=== PATIENT | female | born 1935 | race Caucasian/White ===

== ENCOUNTER 2023-06-30 13:02 | Inpatient (IN) | payer OTHER ==
[~2023-06-30] VITALS: Ht 160 cm; Wt 50.3 kg
[2023-06-30 13:15] VITALS: BP 120/84; PULSE 89; RESP 20; TEMP 97; O2SAT 98
[2023-06-30] MEDS: NACL 0.9% 1,000 ML IV ONE (14:30)
[2023-06-30] MEDS ORDERED: LEFL20TA22 PO (15:28)
[2023-06-30] MEDS ORDERED: CARV6.25 PO (15:28)
[2023-06-30] MEDS ORDERED: APIX2.5 PO (15:28)
[2023-06-30] MEDS ORDERED: SYN.075 PO (15:28)
[2023-06-30] MEDS ORDERED: SPIR50TA PO (15:28)
[2023-06-30] MEDS ORDERED: AMIO100T3 PO (15:28)
[2023-06-30] MEDS ORDERED: OMEP20EC11 PO (15:28)
[2023-06-30] MEDS ORDERED: LOSA-272 PO (15:28)
[2023-06-30] MEDS ORDERED: FURO-572 PO (15:28)
[2023-06-30] MEDS ORDERED: GABA300C PO (15:28)
[2023-06-30] MEDS ORDERED: ATOR40TA PO (15:28)
[2023-06-30 15:48] LABS: APPEARANCE,URINE CLEAR (CLEAR); BILIRUBIN,URINE NEGATIVE (NEGATIVE); BLOOD, URINE NEGATIVE (NEGATIVE); COLOR,URINE YELLOW (YELLOW); LEUKOCYTE ESTERASE ,URINE NEGATIVE (NEGATIVE); NITRITE, URINE NEGATIVE (NEGATIVE); PROTEIN,URINE NEGATIVE (NEGATIVE); UGLUCOSE NEGATIVE (NEGATIVE); UROBILINOGEN,URINE 0.2 EU/dL (0.2 - 1)
[2023-06-30 15:58] LABS: BASOPHILS % (AUTO) 0.3 % (0.0-2.0); EOSINOPHILS % (AUTO) 0.3 % (0.0-4.0); HEMATOCRIT 30.1 % (36-48); LYMPHOCYTES # (AUTO) 0.9 K/uL (2.5-16.5); LYMPHOCYTES % (AUTO) 7.6 % (20.5-51.1); MEAN CORPUSCULAR HEMOGLOBIN 31 pg (27-31); MEAN CORPUSCULAR HGB CONC 33 g/dL (33-37); MEAN CORPUSCULAR VOLUME 94.7 fL (80-94); MONOCYTES # (AUTO) 0.6 K/uL (0.8-1.0); MONOCYTES % (AUTO) 5.2 % (1.7-9.3); NEUTROPHILS # (AUTO) 9.8 K/uL (1.8-7.7); NEUTROPHILS % (AUTO) 86.6 % (42.2-75.2); PLATELET COUNT (AUTO) 220 K/uL (140-450); RED BLOOD CELL COUNT(AUTO) 3.18 MIL/uL (4.20-5.40); RED CELL DISTRIBUTION WIDTH 17.9 % (11.6-13.7); WHITE BLOOD COUNT (AUTO) 11.3 K/uL (4.8-10.8)
[2023-06-30 16:17] LABS: ALANINE AMINOTRANSFERASE 13 U/L (12-78); ALBUMIN 2.5 g/dL (3.4-5.0); ALKALINE PHOSPHATASE 98 U/L (50-136); ASPARTATE AMINOTRANSFERASE 26 U/L (15-37); LIPASE 44 U/L (16-77); TOTAL BILIRUBIN 0.3 mg/dL (0.0-1.0); TOTAL PROTEIN, SERUM 6.5 g/dL (6.4-8.2)
[2023-06-30 17:08] LABS: INR 1.25 (0.8-1.2); PARTIAL THROMBOPLASTIN TIME 24.1 secs (22-35.6)
[2023-06-30] MEDS ORDERED: CRUSHER, PILL MC ONE (17:30)
[2023-06-30] MEDS: KETOROLAC 30 MG/ML VIAL IVP ONE (17:37)
[2023-06-30] MEDS: ACETAMINOPHEN EXTRA STRENGTH 500 MG TAB PO ONE (17:40)
[2023-06-30] MEDS ORDERED: MAG SULF 2000 MG/WATER PREMIX 50 ML IV PRN (18:25)
[2023-06-30] MEDS ORDERED: POTASSIUM CHLORIDE 10 MEQ TABER PO PRN (18:25)
[2023-06-30] MEDS: NACL 0.9% 1,000 ML IV SCH (18:35)
[2023-06-30] MEDS ORDERED: HYDROcodone/APAP 7.5/325 MG 1 TAB PO PRN (18:35)
[2023-06-30] MEDS ORDERED: ONDANSETRON 4 MG/2 ML VIAL IVP PRN (18:35)
[2023-06-30 20:28] LABS: CHOL/HDL RATIO 2.3 (1-4.5); THYROID STIMULATING HORMONE 10.42 uIU/mL (0.34-3.74)
[2023-06-30 20:48] LABS: INR 0.93 (0.8-1.2); LACTIC ACID 0.8 mmol/L (0.4-2.0); PARTIAL THROMBOPLASTIN TIME 21.1 secs (22-35.6); PROTHROMBIN TIME 9.8 secs (10.8-13.4)
[2023-06-30 21:00] VITALS: PULSE 79; RESP 18; O2SAT 99
[2023-06-30] MEDS: carvediloL 6.25 MG TAB PO SCH (21:30)
[2023-06-30] MEDS: DOCUSATE SODIUM 100 MG GELCAP PO SCH (21:55)
[2023-06-30] MEDS: LOSARTAN 25 MG TAB PO SCH (21:57)
[2023-06-30] MEDS: APIXABAN 2.5 MG TAB PO SCH (22:00)
[2023-06-30] MEDS: GABAPENTIN 300 MG CAP PO SCH (22:01)
[2023-06-30] MEDS: ATORVASTATIN 20 MG TAB PO SCH (22:01)
[2023-06-30] MEDS: hydrALAZINE 20 MG/ML VIAL IVP PRN (23:54)
[2023-07-01] VITALS (7 sets, daily range): BP systolic 96–181; BP diastolic 55–79; PULSE 76–85; RESP 18–19; TEMP 96–98.3; O2SAT 97–99
[2023-07-01 05:28] LABS: BASOPHILS % (AUTO) 0.3 % (0.0-2.0); EOSINOPHILS # (AUTO) 0.1 K/uL (0-0.4); EOSINOPHILS % (AUTO) 0.6 % (0.0-4.0); HEMOGLOBIN 9.3 g/dL (12.0-16.0); LYMPHOCYTES # (AUTO) 1.5 K/uL (2.5-16.5); LYMPHOCYTES % (AUTO) 16.3 % (20.5-51.1); MEAN CORPUSCULAR HEMOGLOBIN 32 pg (27-31); MEAN CORPUSCULAR HGB CONC 33 g/dL (33-37); MEAN CORPUSCULAR VOLUME 95.6 fL (80-94); MONOCYTES # (AUTO) 0.7 K/uL (0.8-1.0); NEUTROPHILS # (AUTO) 6.7 K/uL (1.8-7.7); NEUTROPHILS % (AUTO) 74.8 % (42.2-75.2); PLATELET COUNT (AUTO) 226 K/uL (140-450); RED BLOOD CELL COUNT(AUTO) 2.94 MIL/uL (4.20-5.40); RED CELL DISTRIBUTION WIDTH 18.1 % (11.6-13.7); WHITE BLOOD COUNT (AUTO) 8.9 K/uL (4.8-10.8)
[2023-07-01 05:58] LABS: ANION GAP 11.2 (8-16); CALCIUM 9.2 mg/dL (8.5-10.1); CARBON DIOXIDE 27.9 mmol/L (21-32); CHLORIDE 109 mmol/L (98-107); CREATININE 0.9 mg/dL (0.6-1.3); GLUCOSE 96 mg/dL (74-106); POTASSIUM 4.1 mmol/L (3.5-5.1); SODIUM SERUM 144 mmol/L (136-145); UREA NITROGEN, BLOOD 28 mg/dL (7-18)
[2023-07-01 06:07] LABS: PHOSPHORUS 2.7 mg/dL (2.5-4.9)
[2023-07-01] MEDS: LEVOTHYROXINE 0.075 MG TAB PO SCH (06:40)
[2023-07-01] MEDS ORDERED: AMIODARONE HCL 100 MG PO SCH (09:00)
[2023-07-01] MEDS ORDERED: NON-FORMULARY ITEM (Omeprazole* (Prilosec*) 20 MG) PO SCH (09:00)
[2023-07-01] MEDS ORDERED: LEFLUNOMIDE 10 MG PO SCH (09:00)
[2023-07-01] MEDS: AMIODARONE 200 MG TAB PO SCH (10:10)
[2023-07-01] MEDS: PANTOPRAZOLE 40 MG TABEC PO SCH (10:11)
[2023-07-01] MEDS: FUROSEMIDE 20 MG TAB PO SCH (10:11)
[2023-07-01] MEDS: SPIRONOLACTONE 25 MG TAB PO SCH (10:12)
[2023-07-01] MEDS: ACETAMINOPHEN 325 MG TAB PO PRN (11:56)
[2023-07-01] MEDS: LEFLUNOMIDE 10 MG PO SCH (15:23)
[2023-07-01] MEDS: HYDROcodone/APAP 5/325 MG 1 TAB TAB PO PRN (15:26)
[2023-07-02] VITALS: BP 117/63; PULSE 70; RESP 18; TEMP 97.8; O2SAT 94
[2023-07-02 04:00] VITALS: BP 130/73; PULSE 70; PULSE 74; RESP 18; TEMP 96; O2SAT 96
[2023-07-02 05:23] LABS: BASOPHILS # (AUTO) 0.1 K/uL (0.00-0.22); BASOPHILS % (AUTO) 1.1 % (0.0-2.0); EOSINOPHILS # (AUTO) 0.2 K/uL (0-0.4); EOSINOPHILS % (AUTO) 2.2 % (0.0-4.0); HEMATOCRIT 27.1 % (36-48); HEMOGLOBIN 8.9 g/dL (12.0-16.0); LYMPHOCYTES # (AUTO) 2.2 K/uL (2.5-16.5); MEAN CORPUSCULAR HEMOGLOBIN 31 pg (27-31); MEAN CORPUSCULAR HGB CONC 33 g/dL (33-37); MEAN CORPUSCULAR VOLUME 94.7 fL (80-94); MONOCYTES # (AUTO) 0.7 K/uL (0.8-1.0); MONOCYTES % (AUTO) 8.3 % (1.7-9.3); NEUTROPHILS # (AUTO) 5.2 K/uL (1.8-7.7); NEUTROPHILS % (AUTO) 62.4 % (42.2-75.2); PLATELET COUNT (AUTO) 233 K/uL (140-450); RED BLOOD CELL COUNT(AUTO) 2.86 MIL/uL (4.20-5.40); RED CELL DISTRIBUTION WIDTH 17.8 % (11.6-13.7); WHITE BLOOD COUNT (AUTO) 8.3 K/uL (4.8-10.8)
[2023-07-02] MEDS: LEVOTHYROXINE 0.088 MG TAB PO SCH (05:35)
[2023-07-02 05:50] LABS: ANION GAP 8.1 (8-16); CALCIUM 9.1 mg/dL (8.5-10.1); CARBON DIOXIDE 28.1 mmol/L (21-32); CHLORIDE 108 mmol/L (98-107); CREATININE 0.9 mg/dL (0.6-1.3); GLUCOSE 99 mg/dL (74-106); POTASSIUM 4.2 mmol/L (3.5-5.1); SODIUM SERUM 140 mmol/L (136-145); UREA NITROGEN, BLOOD 31 mg/dL (7-18)
[2023-07-02 05:52] LABS: MAGNESIUM 1.9 mg/dL (1.8-2.4); PHOSPHORUS 2.8 mg/dL (2.5-4.9)
[2023-07-02 08:00] VITALS: BP 144/68; PULSE 73; PULSE 79; RESP 18; TEMP 97.1; O2SAT 100
[2023-07-02] MEDS ORDERED: COMMUNICATION ORDER MC SCH (09:00)
[2023-07-02 12:00] VITALS: BP 126/63; PULSE 77; PULSE 79; RESP 17; TEMP 97.8; O2SAT 98
[2023-07-02 16:00] VITALS: BP 151/63; PULSE 74; PULSE 75; RESP 18; TEMP 97.1; O2SAT 97
[2023-07-02 20:00] VITALS: BP 174/73; PULSE 86; PULSE 87; RESP 18; TEMP 97; O2SAT 92
[2023-07-03] VITALS: BP 123/61; PULSE 80; PULSE 82; RESP 18; TEMP 96.5; O2SAT 95
[2023-07-03 04:00] VITALS: BP 132/64; PULSE 76; RESP 18; TEMP 96.6; O2SAT 93
[2023-07-03 05:10] LABS: CALCIUM 8.9 mg/dL (8.5-10.1); CHLORIDE 107 mmol/L (98-107); GLUCOSE 96 mg/dL (74-106); SODIUM SERUM 140 mmol/L (136-145); UREA NITROGEN, BLOOD 29 mg/dL (7-18)
[2023-07-03 05:12] LABS: MAGNESIUM 1.9 mg/dL (1.8-2.4); PHOSPHORUS 2.7 mg/dL (2.5-4.9)
[2023-07-03 05:46] LABS: EOSINOPHILS # (AUTO) 0.2 K/uL (0-0.4); HEMOGLOBIN 8.6 g/dL (12.0-16.0); LYMPHOCYTES # (AUTO) 1.5 K/uL (2.5-16.5)
[2023-07-03 05:54] LABS: BASOPHILS % (AUTO) 0.5 % (0.0-2.0); EOSINOPHILS % (AUTO) 1.9 % (0.0-4.0); LYMPHOCYTES % (AUTO) 16.2 % (20.5-51.1); MEAN CORPUSCULAR HEMOGLOBIN 32 pg (27-31); MEAN CORPUSCULAR HGB CONC 33 g/dL (33-37); MEAN CORPUSCULAR VOLUME 95.5 fL (80-94); MONOCYTES # (AUTO) 0.8 K/uL (0.8-1.0); MONOCYTES % (AUTO) 8.7 % (1.7-9.3); NEUTROPHILS # (AUTO) 6.9 K/uL (1.8-7.7); NEUTROPHILS % (AUTO) 72.7 % (42.2-75.2); PLATELET COUNT (AUTO) 227 K/uL (140-450); RED BLOOD CELL COUNT(AUTO) 2.72 MIL/uL (4.20-5.40); RED CELL DISTRIBUTION WIDTH 17.9 % (11.6-13.7); WHITE BLOOD COUNT (AUTO) 9.6 K/uL (4.8-10.8)
[2023-07-03 08:00] VITALS: BP 131/60; PULSE 74; PULSE 76; PULSE 87; RESP 18; TEMP 97.3; O2SAT 92; O2SAT 95
[2023-07-03] MEDS ORDERED: LEVO0.087 PO (09:47)
[2023-07-03] MEDS ORDERED: ACET-9525 PO (09:48)
[2023-07-03] MEDS ORDERED: IBUP-2213 PO (09:48)
[2023-07-03 12:00] VITALS: BP 140/65; PULSE 71; PULSE 74; RESP 18; TEMP 97.6; O2SAT 95
== END 2023-07-03 14:13 | DRG 535 ==
LOC: MED 13:02 → MTU 17:49
PROC: 0QS5XZZ Reposition Left Acetabulum, External Approach (ICD-10-PCS; principal; 2023-07-01)
PROC: 0QS3XZZ Reposition Left Pelvic Bone, External Approach (ICD-10-PCS; 2023-07-01)
DX: S32.502A Unspecified fracture of left pubis, initial encounter for closed fracture (principal); E43 Unspecified severe protein-calorie malnutrition; S32.402A Unspecified fracture of left acetabulum, initial encounter for closed fracture; I50.22 Chronic systolic (congestive) heart failure; I42.9 Cardiomyopathy, unspecified; Z68.1 Body mass index [BMI] 19.9 or less, adult; F03.90 Unspecified dementia, unspecified severity, without behavioral disturbance, psychotic disturbance, mood disturbance, and anxiety; I11.0 Hypertensive heart disease with heart failure; E78.5 Hyperlipidemia, unspecified; Z66 Do not resuscitate; E03.9 Hypothyroidism, unspecified; K21.9 Gastro-esophageal reflux disease without esophagitis; G62.9 Polyneuropathy, unspecified; I70.0 Atherosclerosis of aorta; D63.8 Anemia in other chronic diseases classified elsewhere; W18.39XA Other fall on same level, initial encounter; I48.0 Paroxysmal atrial fibrillation; Z88.5 Allergy status to narcotic agent; Y93.89 Activity, other specified; Y92.89 Other specified places as the place of occurrence of the external cause; Y99.8 Other external cause status; R62.7 Adult failure to thrive
CPT/HCPCS: 36415; 70450; 71045; 72170; 72192; 80048; 80076; 81003; 82140; 82150; 83036; 83605; 83690; 83735; 83880; 84100; 84443; 84484; 85025; 85610; 85730; 86886; 86900; 86901; 87040; 87081; 87086; 92526; 93005; 97112; 97163-GP; 97530; J0360; J1885